=== PATIENT | male | born 1975 | race Caucasian/White ===

== ENCOUNTER 2022-06-02 14:29 | Emergency (ER) | payer OTHER, SELFPAY ==
--- NOTE | 2022-06-02 14:39 | ED.GENADULT ---
HPI - General Adult General Chief complaint: Unspecified Stated complaint: NEEDS DIABETIC MED REFILLS Time Seen by Provider: 06/02/22 14:40 Source: patient, RN notes reviewed and old records reviewed Mode of arrival: ambulatory Limitations: no limitations History of Present Illness HPI narrative: 47 year old male who presents to [facility] care with complaints of needing medications for his diabetes, enough to last till [place]. Patient reports that he works for the [employer] in [place] and he is home to area due to father being ill and he had to stay longer than planned and needs some of his medications filled till he can get home. He reports that he has primary care provider he sees and takes care of his medications needs at home.Patient reports that blood sugar was 180 this morning per finger stick. MD complaint: needs enough medication to last of his diabetic till can get back home Related Data Home Medications Medication Instructions Recorded Confirmed empagliflozin 12.5 mg-metformin 1 tablet PO BID 06/02/22 06/02/22 1,000 mg tablet (Synjardy) glimepiride 4 mg tablet (Amaryl) 4 mg DAILY 06/02/22 06/02/22 insulin glargine 100 unit/mL 15 unit subcut HS 06/02/22 06/02/22 subcutaneous solution (Lantus U-100 Insulin) semaglutide 1 mg/dose (2 mg/1.5 1 mg subcut WEEKLY 06/02/22 06/02/22 mL) subcutaneous pen injector (Ozempic) Allergies Allergy/AdvReac Type Severity Reaction Status Date / Time No Known Allergies Allergy Unverified 06/27/13 13:04 Review of Systems Review of Systems: CONSTITUTIONAL: Denies fever, chills, or sweats. EYES: Denies visual changes, redness, or discharge. ENT: Denies rhinorrhea, congestion, sore throat, or otalgia. CARDIOVASCULAR: Denies chest pain, palpitations, or edema. RESPIRATORY: Denies cough or dyspnea. GASTROINTESTINAL: Denies abdominal pain, nausea, vomiting, or diarrhea. GENITOURINARY: Denies dysuria or hematuria. SKIN: Denies rash or itching. MUSCULOSKELETAL: Denies back pain, joint pain, or myalgia. NEUROLOGIC: Denies headache, numbness, or weakness. PSYCHIATRIC: Denies anxiety or depression. All systems reviewed & are unremarkable except as noted in HPI and below PMFSH Past Medical History Medical History (Updated 06/04/22 @ 11:48 by Prema Mayo NP) Diabetes Fatty liver Neuropathy Polycystic kidney disease Social History Social History (Updated 06/04/22 @ 11:47 by Prema Mayo NP) Smoking packs per day: 0.25 Smoking cigarettes per day: 5.0 Years smoked: 20 Smoking pack-years: 5.00 Smoking status: Current every day smoker Alcohol intake: current Alcohol use details: rare social Substance use type: does not use Living arrangements: with family Gender identity (if verbalized by the patient): Male Comments At time of signature, agree with nursing past medical, surgical, social and family history. There is no relevant family history pertinent to the presenting complaint Exam Narrative: GENERAL: Well-appearing, well-nourished, and in no acute distress. HEAD: Normocephalic, atraumatic. EYES: PERRLA and EOMI. ENT: Nares clear, no rhinorrhea or epistaxis. Mucous membranes moist. TM's normal with good light reflex, Throat pink with no lesions or swelling NECK: Supple.no lymphadenopathy CHEST: Clear to auscultation. No respiratory distress.SAO2 98% on room air HEART: Regular rate and rhythm. No murmur heard. Normal peripheral pulses. ABDOMEN: Soft, nontender, nondistended, normal active bowel sounds. EXTREMITIES: Normal range of motion. No edema. full mobility of all extremities. SKIN: Warm, dry, no rash. NEURO: No focal deficits. Alert and oriented x3. Course Course Level of Care: Express Care Visit Vital Signs Vital signs: Vital Signs Temperature 36.6 C 06/02/22 14:45 Pulse Rate 89 06/02/22 14:45 Respiratory Rate 20 06/02/22 14:45 Blood Pressure 130/99 H
[2022-06-02 14:45] VITALS: BP 130/99; PULSE 89; RESP 20; TEMP 36.6; O2SAT 98
== END 2022-06-02 15:22 | disposition home or self-care (01) ==
PROVIDERS: Emergency Provider Registered Nurse
DX: Z76.0 Encounter for issue of repeat prescription (principal); E11.40 Type 2 diabetes mellitus with diabetic neuropathy, unspecified; F17.210 Nicotine dependence, cigarettes, uncomplicated; Q61.3 Polycystic kidney, unspecified; K76.0 Fatty (change of) liver, not elsewhere classified
CPT/HCPCS: 99203; 99211; G0463